=== PATIENT | male | born 1950 | race Caucasian/White ===

== ENCOUNTER 2020-10-27 19:38 | Observation (INO) ==
[2020-10-27] MEDS ORDERED: Nitroglycerin 1 INCH/GM PACKET TP ONE (19:52)
[2020-10-27] MEDS ORDERED: Aspirin 81 MG TAB.CHEW PO ONE (19:52)
[2020-10-27 19:59] LABS: Basophils # 0.1 K/mcL (0.0-0.2); Basophils % 0.6 %; Eosinophils # 0.2 K/mcL (0.0-0.6); Eosinophils % 2.6 %; Hematocrit 43.6 % (37.5-50.1); Hemoglobin 15.1 g/dL (12.9-16.9); Immature Granulocytes % 0.2 % (0-4); Lymphocytes # 2.1 K/mcL (0.6-4.6); Lymphocytes % 24.6 %; Mean Corpuscular HGB Conc 34.6 g/dL (31.6-35.5); Mean Corpuscular Hemoglobin 29.4 pg (28.0-33.3); Mean Platelet Volume 10.6 fL (9.4-12.4); Monocytes # 0.8 K/mcL (0.0-1.3); Monocytes % 10.1 %; Neutrophils # 5.1 K/mcL (1.6-8.9); Platelet Count 196 K/mcL (140-400); Red Blood Count 5.13 M/mcL (4.19-5.50); Red Cell Distribution Width 13.9 % (11.5-14.5); Segmented Neutrophils % 61.9 %; White Blood Count 8.3 K/mcL (4.3-11.1)
[2020-10-27 20:01] LABS: INR 1.1; Prothrombin Time 12.6 Seconds (9.4-12.1)
[2020-10-27 20:03] LABS: Activated Partial Thrombo Time 28.5 Seconds (26.0-36.0)
[2020-10-27 20:09] LABS: BUN/Creatinine Ratio 9 (6-26); Blood Urea Nitrogen 10 mg/dL (8-23); Calcium 9.3 mg/dL (8.6-10.3); Carbon Dioxide 28 mEq/L (23-29); Chloride 102 mEq/L (98-107); Glucose 130 mg/dL (70-105); Osmolality,Calculated 289 (280-300); Potassium 3.4 mEq/L (3.5-5.1); Sodium 139 mEq/L (136-145); eGFR For African Americans > 60 (> 60); eGFR For Non-African Americans > 60 (> 60)
[2020-10-27 20:11] LABS: Troponin I < 0.03 ng/mL (< 0.04)
[2020-10-27] MEDS ORDERED: Naloxone 0.4 MG/ML INJ IVP PRN (21:01)
[2020-10-27] MEDS ORDERED: Nitroglycerin 0.4 MG TAB.SUBL SL PRN (21:01)
[2020-10-27] MEDS ORDERED: Ondansetron 4 MG/2 ML VIAL IVP PRN (21:01)
[2020-10-27] MEDS ORDERED: Acetaminophen 325 MG TABLET PO PRN (21:01)
[2020-10-27] MEDS ORDERED: Mag Hydrox/Al Hydrox/Simeth 30 ML UDC PO PRN (22:46)
[2020-10-27] MEDS: carvediloL 6.25 MG TABLET PO SCH (22:54)
[2020-10-28] MEDS ORDERED: *HR* Enoxaparin 40 MG/0.4 ML SYRINGE SQ SCH (06:00)
[2020-10-28] MEDS ORDERED: Nitroglycerin 1 INCH/GM PACKET TP SCH (06:00)
[2020-10-28 06:41] VITALS: BP 164/79
[2020-10-28] MEDS ORDERED: allopurinoL 300 MG TABLET PO SCH (09:00)
[2020-10-28] MEDS ORDERED: Aspirin Enteric Coated 81 MG Tablet PO SCH (09:00)
[2020-10-28] MEDS ORDERED: amLODIPine 5 MG TABLET PO SCH (09:00)
[2020-10-28] MEDS ORDERED: NON-FORMULARY MEDICATION 1 EACH EACH (Ezetimibe [Zetia] 10 MG) PO SCH (09:00)
[2020-10-28] MEDS: carvediloL 6.25 MG TABLET PO SCH (09:06)
== END 2020-10-28 12:00 | disposition home or self-care (01) ==
LOC: EMEROOGRE 19:38 → INPGRE 19:38
PROVIDERS: ADMIT Family Medicine; ATTEND Family Medicine